=== PATIENT | female | born 1970 | race Caucasian/White ===

== ENCOUNTER 2022-02-22 16:23 | Emergency (ER) | payer OTHER ==
[~2022-02-22] VITALS: Ht 154.9 cm; Wt 71.2 kg
[2022-02-22 16:27] VITALS: BP 132/75
--- NOTE | 2022-02-22 16:30 | NUR ---
52 y/o female, c/o sharp chest pain radiates to back with left arm numbness and heavy sensation that started today. 6/10 pain in epigastric area and moves up to shouler and left extremity. a&ox4, ambulates with steady gait, lung sounds even bl, heart rate regular and even. skin pink/warm/intact/dry. denies cough, sob, cough, sore throat, fever and chills. pmh: denies nka med: denies
--- NOTE | 2022-02-22 19:44 | NUR ---
PT TAKEN TO BED 12
--- NOTE | 2022-02-22 20:07 | NUR ---
er md at bedside for examination
[2022-02-22] MEDS ORDERED: KETOROLAC 60 MG/2 ML VIAL IM ONE (20:15)
[2022-02-22] MEDS ORDERED: IBUP-2213 PO (20:55)
[2022-02-22] MEDS ORDERED: PRED20TA5 PO (20:55)
[2022-02-22] MEDS ORDERED: OMEP40EC24 PO (20:55)
[2022-02-22 21:12] VITALS: BP 127/65
--- NOTE | 2022-02-22 21:12 | NUR ---
Patient discharged with v/s WNL. Written and verbal after care instructions given and explained. Patient alert, oriented and verbalized understanding of instructions. Ambulatory with steady gait. All questions addressed prior to discharge. ID band removed. Patient advised to follow up with PMD. Rx of Ibuprofen, prilosec, and deltasone given. Patient educated on indication of medication including possible reaction and side effects. Opportunity to ask questions provided and answered.
== END 2022-02-22 21:12 | disposition home or self-care (01) ==
LOC: MED 16:23
DX: R10.13 Epigastric pain (principal); R07.89 Other chest pain; R11.2 Nausea with vomiting, unspecified; Z98.890 Other specified postprocedural states; Z90.710 Acquired absence of both cervix and uterus
CPT/HCPCS: 81002; 81025; 93005; 96372; 99283; J1885